=== PATIENT | female | born 1985 ===

== ENCOUNTER 2018-01-23 22:06 | Emergency (ER) | payer MEDICAID, OTHER ==
[2018-01-23 22:07] VITALS: BMI 35.3
[2018-01-23 22:18] VITALS: BP 128/70; PULSE 58; RESP 18; TEMP 98.6; O2SAT 99
--- NOTE | 2018-01-23 23:10 | C.PDOC ---
History Of Present Illness 32 year old female presents to the ED c/o right middle finger swelling and pain that started this morning. Patient states she noticed today that her right middle finger was swollen and red with increased pain. Patient denies injury, fall, trauma, fever, chills, rash, recent travel. Time Seen by Provider: 01/23/18 22:25 Chief Complaint (Nursing): Finger,Hand,&Wrist History Per: Patient History/Exam Limitations: no limitations Onset/Duration Of Symptoms: Hrs Current Symptoms Are (Timing): Still Present Severity: None Recent travel outside of the [place]: No Additional History Per: Patient Past Medical History Reviewed: Historical Data, Nursing Documentation, Vital Signs Vital Signs: Last Vital Signs Temp 98.6 F 01/23/18 22:15 Pulse 58 L 01/23/18 22:15 Resp 18 01/23/18 22:15 BP 128/70 01/23/18 22:15 Pulse Ox 99 01/24/18 04:11 - Medical History PMH: No Chronic Diseases Denies: Chronic Kidney Disease Surgical History: Cholecystectomy, (x3) Family History: States: Unknown Family Hx - Social History Hx Alcohol Use: No Hx Substance Use: No - Immunization History Hx Tetanus Toxoid Vaccination: No Hx Influenza Vaccination: No Hx Pneumococcal Vaccination: No Review Of Systems Constitutional: Negative for: Fever, Chills Musculoskeletal: Positive for: Hand Pain Skin: Negative for: Rash Neurological: Negative for: Weakness, Numbness Physical Exam - Physical Exam Appears: Non-toxic, No Acute Distress Skin: Normal Color, Warm, Dry Head: Atraumatic, Normacephalic Eye(s): bilateral: Normal Inspection Extremity: Normal ROM, Tenderness (right 3rd finger), Capillary Refill (< 2 seconds), No Deformity, Swelling (local area of swelling to right 3rd finger with yellowish discharge at the base of the nailbed. no warmth or erythema) Pulses: Left Radial: Normal, Right Radial: Normal Neurological/Psych: Oriented x3, Normal Speech, Normal Motor, Normal Sensation Gait: Steady ED Course And Treatment O2 Sat by Pulse Oximetry: 99 (ON RA) Pulse Ox Interpretation: Normal Progress Note: On reassessment, patient is resting comfortably, and is in no acute distress. Patient was instructed to follow up with physician/clinic in 1- 2 days for further evaluation. Patient was instructed in proper wound care. - Incision & Drainage Of Abscess Used During Procedure: Oxygen Prep Used: Betadine Procedure: Incised W/Scalpel Blade#:, Drained Pus, Irrigated Cavity W/Saline ( pt tolerated well) Disposition Counseled Patient/Family Regarding: Diagnosis, Need For Followup, Rx Given - Disposition Referrals: Non [facility] Provider, [Primary Care Provider] - [facility] [Outside] Disposition: HOME/ ROUTINE Disposition Time: 23:07 Condition: STABLE Additional Instructions: Keep finger clean and dry Wound check in 2 days Apply antibacterial ointment Take keflex for pain Tylenol or advil for pain Return to ER if increaing pain, finger looks swollen, red or hot, fever or worse Prescriptions: Cephalexin [cephalexin] 1,000 mg PO BID #20 cap Instructions: Paronychia (DC) Forms: [employer]IV[employer] (Algerian) Print Language: TAIWANESE - Clinical Impression Clinical Impression: Paronychia - PA / [employer] OPERATOR / Resident Statement MD/DO has reviewed & agrees with the documentation as recorded. - Scribe Statement The provider has reviewed the documentation as recorded by the Scribe Ronald Valdez All medical record entries made by the Scribe were at my direction and personally dictated by me. I have reviewed the chart and agree that the record accurately reflects my personal performance of the history, physical exam, medical decision making, and the department course for this patient. I have also personally directed, reviewed, and agree with the discharge instructions and disposition.
== END 2018-01-23 23:14 | disposition home or self-care (01) ==
LOC: C.ER 22:06 → SUPCPDRO 22:06 → C.ER 23:14
DX: L03.011 Cellulitis of right finger (principal)